=== PATIENT | female | born 1965 | race Caucasian/White ===

== ENCOUNTER 2016-08-23 17:25 | Emergency (ER) | payer OTHER ==
[~2016-08-23] VITALS: Ht 162.6 cm; Wt 117.9 kg
--- NOTE | 2016-08-23 17:34 | NUR ---
Dr. Horowitz in room for evaluation.
[2016-08-23] MEDS: ACETAMINOPHEN/CODEINE 300-30 MG TABLET PO ONE (17:44)
[2016-08-23] MEDS ORDERED: ACETAMINOPHEN/CODEINE 300-30 MG TABLET ONE (17:53)
--- NOTE | 2016-08-23 18:26 | NUR ---
Patient discharged to home in stable conditon. Written and verbal after care instructions given. Patient verbalizes understanding of instructions.
[2016-08-23 18:27] VITALS: BP 122/69
== END 2016-08-23 18:42 | disposition home or self-care (01) ==
LOC: ER 17:27
DX: S46.912A Strain of unspecified muscle, fascia and tendon at shoulder and upper arm level, left arm, initial encounter (principal); S40.012A Contusion of left shoulder, initial encounter; Z88.1 Allergy status to other antibiotic agents; K58.9 Irritable bowel syndrome, unspecified; G43.909 Migraine, unspecified, not intractable, without status migrainosus; W18.30XA Fall on same level, unspecified, initial encounter; Y93.89 Activity, other specified; Y92.009 Unspecified place in unspecified non-institutional (private) residence as the place of occurrence of the external cause; Y99.9 Unspecified external cause status
CPT/HCPCS: 73030; 73562; 73590; A4663